=== PATIENT | female | born 1995 | race Two or more races ===

== ENCOUNTER 2025-02-14 11:12 | Inpatient (IN) | payer MEDICAID, OTHER ==
[~2025-02-14] VITALS: Ht 167.6 cm; Wt 145.0 kg
[2025-02-14 12:42] LABS: Urine Bacteria MANY /hpf (None Seen); Urine Blood Negative /uL (Negative); Urine Clarity Clear (Clear); Urine Color Light-Yellow (Yellow); Urine Protein, UAD Negative (Negative); Urine Specific Gravity 1.013 (1.001-1.035); Urine Squamous Epithelial Cell FEW /hpf (<5); Urine Urobilinogen Normal (Negative); Urine WBC 6 /HPF (0-5); Urine pH 6.5 (5.0-9.0)
[2025-02-14 13:11] LABS: Basophils # (auto) 0 10 ^3/uL (0-0.2); Basophils % (auto) 0.1 % (0.0-2.0); Eosinophils # (auto) 0.1 10 ^3/uL (0-0.8); Eosinophils % (auto) 0.3 % (0.0-7.0); Hematocrit 39.4 % (36.0-46.0); Hemoglobin 13.1 g/dL (12.2-16.2); Lymphocytes # (auto) 1.5 10 ^3/uL (0.4-5.4); Lymphocytes % (auto) 7.7 % (10.0-50.0); Mean Corpuscular Hemoglobin 31.3 pg (28.0-32.0); Mean Corpuscular Hgb Conc. 33.4 g/dL (32.0-36.0); Mean Corpuscular Volume 93.8 fL (80.0-100.0); Monocytes # (auto) 1.3 10 ^3/uL (0-1.3); Monocytes % (auto) 6.4 % (0.0-12.0); Neutrophils # (auto) 16.7 10 ^3/uL (1.6-8.6); Neutrophils % (auto) 85.5 % (37.0-80.0); Nucleated Red Blood Cells % 0.1 %; Platelet Count (auto) 258 10^3/uL (140-450); Red Cell Distribution Width 13.9 % (11.8-14.3); White Blood Cell 19.5 10^3/uL (4.4-10.8)
[2025-02-14 13:19] LABS: Chloride 105 mmol/L (98-107); Sodium 138 mmol/L (136-145)
[2025-02-14 13:20] LABS: Anion Gap 6 (5-15); Calcium 9.3 mg/dL (8.7-10.4); Carbon Dioxide 27 mmol/L (20-31)
[2025-02-14 13:25] LABS: BUN/Creatinine Ratio 11.1 (10.0-20.0); Glucose 103 mg/dL (74-106)
[2025-02-14 13:28] LABS: Blood Urea Nitrogen 6 mg/dL (9-23)
[2025-02-14] MEDS: IOHEXOL 300 MG/ML 100ML BOTTLE IJ ONE (14:20)
--- NOTE | 2025-02-14 14:34 | DVH ---
Exam: CT CT AB PEL WITH IV CON ONLY History: Pain to left labia. Abscess COMPARISON: None Technique: Multidetector spiral CT of the abdomen and pelvis was performed from lung bases to pubic symphysis. Intravenous contrast was administered during this examination. Portal venous imaging was obtained. Axial, coronal and sagittal multiplanar reformats were performed by the technologist on a separate workstation. Radiation Dose : Abdomen/Pelvis: CTDIvol 27 mGy, DLP 1755 mGy*cm. CONTRAST: Type of contrast: Omni 300 Contrast injected: 100 mL Findings: Lung Bases: No acute or significant lung base finding. Normal heart size. No pleural or pericardial effusion. Liver: The liver is normal in size. No focal lesions. Normal hepatic vascular enhancement. Gallbladder and biliary Tree: Unremarkable Spleen: Unremarkable Pancreas: The pancreas is normal in appearance without focal lesions or abnormal enhancement. Adrenal Glands: Unremarkable Kidneys: No hydronephrosis. Bladder: Unremarkable Bowel: The stomach is grossly normal in appearance. Small bowel and colon are normal in caliber and d istribution. Normal appendix is visualized in the right lower quadrant without findings of appendicit is. Ascites: Absent Lymphadenopathy: Bilateral inguinal lymphadenopathy left greater than right. Abdominal wall and Mesentery: Unremarkable. Vasculature: The visualized abdominal aorta is normal in size and caliber. Abdominal and pelvic vess els demonstrate normal enhancement. Pelvic Organs: Left labia is swollen with a possible early abscess formation measuring up to 17 x 55 mm. Musculoskeletal: No aggressive focal bony lesions, acute fractures or dislocation. IMPRESSION: 1. Fluid collection in the left labia with adjacent swelling and stranding. Abscess measures up to 1 7 x 55 mm. Bilateral inguinal lymphadenopathy left greater than right. This could be further evaluate d with ultrasound. Radiation optimization: All CT scans at this facility use at least one of these dose optimization mohit hniques: Automated exposure control mA and/or kV adjustment per patient size (includes targeted exams where dose is matched to clinical indication) or iterative reconstruction. HS:Y
[2025-02-14] MEDS ORDERED: VANCOMYCIN PER PHARMACY 0 MG IV SCH (14:45)
--- NOTE | 2025-02-14 14:50 | ED.PDOC ---
History of Present Illness(SKN HPI Comments 30-year-old female with no MHx presents for a possible abscess to the left labia. Onset started two days ago. Associated with constant pain. Denies fevers chills nausea vomiting diarrhea drainage from the affected side Not immunocompromised Chief Complaint: Abscess Time Seen by MD: 11:22 Primary Care Provider: UNKNOWN History of Present Illness: Nurses Notes, Medications, Allergies Allergies: Coded Allergies: NO KNOWN ALLERGIES (Unverified , 02/14/25) Home Meds Active Scripts Clindamycin Hcl (Clindamycin Hcl) 300 Mg Cap, 1 CAP PO TID, #30 CAP Prov:SADIE SANTILLAN MD 02/18/25 Metoprolol Tartrate (Lopressor) 25 Mg Tb, 12.5 MG PO BID, #30 TAB 5 Refills Prov:SADIE SANTILLAN MD 02/18/25 Hydrocodone-Acetaminophen (Hydrocodone Bitartrate/AC 5-325 mg) 1 Tab Tab, 1 TAB PO Q4HP PRN, #30 TAB Prov:SADIE SANTILLAN MD 02/18/25 Flecainide Acetate (TAMBOCOR TABLET) 50 Mg Tb, 50 MG PO Q12HR, #60 TAB 5 Refills Prov:SADIE SANTILLAN MD 02/18/25 Information Source: Patient Mode of Arrival: Ambulatory Past Medical History PAST MEDICAL HISTORY: Denies Surgical History: Denies all surgeries 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 Family History Family History: Reviewed,noncontributory to illness Social History Smoker: Non-Smoker Alcohol: Denies ETOH Use Drugs: Denies Drug Use All Other Systems: Reviewed and Negative (Per Hpi) Physical Exam General Appearance: No Apparent Distress, Normal HEENT: Normal ENT Inspection, Pharynx Normal, TMs Normal Neck: Full Range of Motion, Non-Tender, Normal, Normal Inspection Respiratory: Chest Non-Tender, Lungs Clear, No Accessory Muscle Use, No Respiratory Distress, Normal Breath Sounds Cardiovascular: No Edema, No JVD, No Murmur, No Gallop, Regular Rate/Rhythm Breast Exam: Deferred Gastrointestinal: No Organomegaly, Non Tender, No Pulsatile Mass, Normal Bowel Sounds, Soft Genitalia: Deferred Pelvic: Deferred Rectal: Deferred Extremities: No calf tenderness, Normal capillary refill, Normal inspection, Normal range of motion, Non-tender, No pedal edema Musculoskeletal : Apperance: Normal Neurologic: Alert, No Motor Deficits, Normal Affect, Normal Mood, No Sensory Deficits Cerebellar Function: Normal Reflexes: Normal Skin: Dry, Normal Color, Warm Lymphatic: No Adenopathy Was a procedure done? Was a procedure done?: No Images 1 - LEFT LABIA ENLARGED. ERYTHEMATOUS. FLUCTUANT TO PALPATION. OBVIOUS ENLARGEMENT AND SWELLING COMPARED TO THE UNAFFECTED SIDE. NO CREPITUS ON PALPATION. Differential Diagnosis (INTG) Differential Diagnosis: Cellulitis Differential Diagnosis: Abscess X-Ray, Labs, Meds, VS Vital Signs Date Time Temp Pulse Resp B/P (MAP) Pulse Ox O2 Delivery O2 Flow Rate FiO2 02/14/25 11:16 98.7 99 20 126/84 (98) 97 98.7 Lab Test 02/14/25 12:54 02/14/25 12:12 Range/Units White Blood Count 19.5 H 4.4-10.8 10^3/uL Red Blood Count 4.20 4.0-5.20 10^6/uL Hemoglobin 13.1 12.2-16.2 g/dL Hematocrit 39.4 36.0-46.0 % Mean Corpuscular Volume 93.8 80.0-100.0 fL Mean Corpuscular Hemoglobin 31.3 28.0-32.0 pg Mean Corpuscular Hemoglobin Concent 33.4 32.0-36.0 g/dL Red Cell Distribution Width 13.9 11.8-14.3 % Platelet Count 258 140-450 10^3/uL Mean Platelet Volume 8.7 6.9-10.8 fL Neutrophils (%) (Auto) 85.5 H 37.0-80.0 % Lymphocytes (%) (Auto) 7.7 L 10.0-50.0 % Monocytes (%) (Auto) 6.4 0.0-12.0 % Eosinophils (%) (Auto) 0.3 0.0-7.0 % Basophils (%) (Auto) 0.1 0.0-2.0 % Neutrophils # (Auto) 16.7 H 1.6-8.6 10 ^3/uL Lymphocytes # (Auto) 1.5 0.4-5.4 10 ^3/uL Monocytes # (Auto) 1.3 0-1.3 10 ^3/uL Eosinophils # (Auto) 0.1 0-0.8 10 ^3/uL Basophils # (Auto) 0 0-0.2 10 ^3/uL Nucleated Red Blood Cells 0.1 % Sodium Level 138 136-145 mmol/L Potassium Level 4.0 3.5-5.1 mmol/L Chloride Level 105 98-107 mmol/L Carbon Dioxide Level 27 20-31 mmol/L Anion Gap 6 5-15 Blood Urea Nitrogen 6 L 9-23 mg/dL Creatinine 0.54 L 0.550-1.02 mg/dL Glomerular Filtration Rate Calc 125 >90 mL/min BUN/Creatinine Ratio 11.1 10.0-20.0 Serum Glucose 103 74-106 mg/dL Calcium Level 9.3 8.7-10.4 mg/dL C-Reactive Protein High Sensitivity 5.91 H <1.0 mg/dL Urine Color Light-yellow Yellow Urine Clarity Clear Clear Urine pH 6.5 5.0-9.0 Urine Specific [place] 1.013 1.001-1.035 Urine Protein Negative Negative Urine Ketones Negative Negative Urine Blood Negative Negative /uL Urine Nitrite 2+ H Negative Urine Bilirubin Negative Negative Urine Urobilinogen Normal Negative mg/dL Urine Leukocyte Esterase Trace Negative /uL Urine RBC 1 0 - 4 /hpf Urine Microscopic WBC 6 H 0-5 /HPF Urine Squamous Epithelial Cells Few <5 /hpf Urine Bacteria Many H None Seen /hpf Urine Glucose Normal Normal mg/dL [place] [id number] Ph: [phone] DIAGNOSTIC IMAGING Diagnostic Imaging Report : [id number] Signed PATIENT: PAVAN ALEGRIA ACCT: [id number] UNIT: [id number] : 1995 LOC: ER ROOM / BED: / AGE / SEX: 30 / F ADM STATUS: REG ER SERVICE 1340 ORDERING PHYSICIAN: ANNA VELASCO NP PROCEDURE(s): ABPLIV - CT AB PEL WITH IV CON ONLY REASON: Pain to left labia. Abscess? ORDER NUMBER(s): [id number], ACCESSION NUMBER(s): [id number] Exam: CT CT AB PEL WITH IV CON ONLY History: Pain to left labia. Abscess COMPARISON: None Technique: Multidetector spiral CT of the abdomen and pelvis was performed from lung bases to pubic symphysis. Intravenous contrast was administered during this examination. Portal venous imaging was obtained. Axial, coronal and sagittal multiplanar reformats were performed by the technologist on a separate workstation. Radiation Dose : Abdomen/Pelvis: CTDIvol 27 mGy, DLP 1755 mGy*cm. CONTRAST: Type of contrast: Omni 300 Contrast injected: 100 mL Findings: Lung Bases: No acute or significant lung base finding. Normal heart size. No pleural or pericardial effusion. Liver: The liver is normal in size. No focal lesions. Normal hepatic vascular enhancement. Gallbladder and biliary Tree: Unremarkable Spleen: Unremarkable Pancreas: The pancreas is normal in appearance without focal lesions or abnormal enhancement. Adrenal Glands: Unremarkable Kidneys: No hydronephrosis. Bladder: Unremarkable Bowel: The stomach is grossly normal in appearance. Small bowel and colon are normal in caliber and distribution. Normal appendix is visualized in the right lower quadrant without findings of appendicitis. Ascites: Absent Lymphadenopathy: Bilateral inguinal lymphadenopathy left greater than right. Abdominal wall and Mesentery: Unremarkable. Vasculature: The visualized abdominal aorta is normal in size and caliber. Abdominal and pelvic vessels demonstrate normal enhancement. Pelvic Organs: Left labia is swollen with a possible early abscess formation measuring up to 17 x 55 mm. Musculoskeletal: No aggressive focal bony lesions, acute fractures or dislocation. IMPRESSION: 1. Fluid collection in the left labia with adjacent swelling and stranding. Abscess measures up to 17 x 55 mm. Bilateral inguinal lymphadenopathy left greater than right. This could be further evaluated with ultrasound. Radiation optimization: All CT scans at this facility use at least one of these dose optimization techniques: Automated exposure control mA and/or kV adjustment per patient size (includes targeted exams where dose is matched to clinical indication) or iterative reconstruction. X-Ray, Labs, Meds, VS Comment The patient presents with s/s consistent with a left labia abscess Patients work up was remarkable for: Fluid collection in the left labia with adjacent swelling and stranding. Abscess measures up to 17 x 55 mm. Bilateral inguinal lymphadenopathy left greater than right. This could be further evaluated with ultrasound. Labs ordered and WBC at 19.5, neutrophils 85.5 IV Hep-Lock ordered. Patient will receive vanco per pharmacy and Zosyn The patient's workup reveals that the patient needs IV abx and I&D. Patient verbalized understanding of the above and is awaiting further evaluation by the admitting service. Time of 1ST Reevaluation: 14:41 Reevaluation 1ST: Unchanged Patient Education/Counseling: Diagnosis, Treatment Family Education/Counseling: Diagnosis, Treatment Departure 1 Departure Time of Disposition: 14:49 Impression: Primary Impression: Labial abscess Disposition: 09 ADMITTED INPATIENT Condition: Serious e-Prescriptions Clindamycin Hcl (Clindamycin Hcl) 300 Mg Cap 1 CAP PO TID, #30 CAP Prov: SADIE SANTILLAN MD 02/18/25 Metoprolol Tartrate (Lopressor) 25 Mg Tb 12.5 MG PO BID, #30 TAB 5 Refills Prov: SADIE SANTILLAN MD 02/18/25 Hydrocodone-Acetaminophen (Hydrocodone Bitartrate/AC 5-325 mg) 1 Tab Tab 1 TAB PO Q4HP PRN, #30 TAB Prov: SADIE SANTILLAN MD 02/18/25 Flecainide Acetate (TAMBOCOR TABLET) 50 Mg Tb 50 MG PO Q12HR, #60 TAB 5 Refills Prov: SADIE SANTILLAN MD 02/18/25 Critical Care Note Critical Care Time?: No Stability Stability form required: No Heart Score Heart Score: Heart Score Response (Comments) Value History N/A 0 EKG N/A 0 Age N/A 0 Risk Factors N/A 0 Troponin N/A 0 Total 0 ANNA VELASCO NP Feb 14, 2025 14:50
[2025-02-14] MEDS: PIPERACILLIN-TAZOB 3.375GM 100 ML IV ONE (15:06)
[2025-02-14] MEDS: HYDROcodone-ACET 7.5/325MG TAB PO ONE (15:14)
--- NOTE | 2025-02-14 15:23 | DVHHP2 ---
Admitting Diagnosis: Abscess History of Present Illness 30-year-old female with no MHx presents for a possible abscess to the left labia. Onset started two days ago. Associated with constant pain. 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 Family History Family History: Reviewed,noncontributory to illness Social History Smoker: Non-Smoker Alcohol: Denies ETOH Use Drugs: Denies Drug Use Allergies: Coded Allergies: NO KNOWN ALLERGIES (Unverified , 02/14/25) Current Medications Current Medications Medications (Trade) Dose Ordered Sig/Noah Route PRN Reason Start Time Stop Time Status Last Admin Vancomycin HCl 0 ml @ 0 mls/hr UD IV 02/14/25 14:45 UNV Vancomycin HCl 200 ml @ 200 mls/hr Q1HR IV 02/14/25 16:00 02/14/25 17:59 Vital Signs Vital Signs Date Time Temp Pulse Resp B/P (MAP) Pulse Ox O2 Delivery O2 Flow Rate FiO2 02/14/25 11:16 98.7 99 20 126/84 (98) 97 98.7 Physical Exam 30 years old woman, morbidly obese, lying in bed. No apparent distress HEENT-atraumatic, normocephalic Heart-regular rate and rhythm Lungs decreased breath sounds bilaterally Abdomen soft tender nondistended Musculoskeletal-no edema cyanosis -left labia abscess Neuro-AO x3, no focal deficits Results Labs Test 02/14/25 12:54 02/14/25 12:12 Range/Units White Blood Count 19.5 H 4.4-10.8 10^3/uL Red Blood Count 4.20 4.0-5.20 10^6/uL Hemoglobin 13.1 12.2-16.2 g/dL Hematocrit 39.4 36.0-46.0 % Mean Corpuscular Volume 93.8 80.0-100.0 fL Mean Corpuscular Hemoglobin 31.3 28.0-32.0 pg Mean Corpuscular Hemoglobin Concent 33.4 32.0-36.0 g/dL Red Cell Distribution Width 13.9 11.8-14.3 % Platelet Count 258 140-450 10^3/uL Mean Platelet Volume 8.7 6.9-10.8 fL Neutrophils (%) (Auto) 85.5 H 37.0-80.0 % Lymphocytes (%) (Auto) 7.7 L 10.0-50.0 % Monocytes (%) (Auto) 6.4 0.0-12.0 % Eosinophils (%) (Auto) 0.3 0.0-7.0 % Basophils (%) (Auto) 0.1 0.0-2.0 % Neutrophils # (Auto) 16.7 H 1.6-8.6 10 ^3/uL Lymphocytes # (Auto) 1.5 0.4-5.4 10 ^3/uL Monocytes # (Auto) 1.3 0-1.3 10 ^3/uL Eosinophils # (Auto) 0.1 0-0.8 10 ^3/uL Basophils # (Auto) 0 0-0.2 10 ^3/uL Nucleated Red Blood Cells 0.1 % Sodium Level 138 136-145 mmol/L Potassium Level 4.0 3.5-5.1 mmol/L Chloride Level 105 98-107 mmol/L Carbon Dioxide Level 27 20-31 mmol/L Anion Gap 6 5-15 Blood Urea Nitrogen 6 L 9-23 mg/dL Creatinine 0.54 L 0.550-1.02 mg/dL Glomerular Filtration Rate Calc 125 >90 mL/min BUN/Creatinine Ratio 11.1 10.0-20.0 Serum Glucose 103 74-106 mg/dL Calcium Level 9.3 8.7-10.4 mg/dL Urine Color Light-yellow Yellow Urine Clarity Clear Clear Urine pH 6.5 5.0-9.0 Urine Specific [place] 1.013 1.001-1.035 Urine Protein Negative Negative Urine Ketones Negative Negative Urine Blood Negative Negative /uL Urine Nitrite 2+ H Negative Urine Bilirubin Negative Negative Urine Urobilinogen Normal Negative mg/dL Urine Leukocyte Esterase Trace Negative /uL Urine RBC 1 0 - 4 /hpf Urine Microscopic WBC 6 H 0-5 /HPF Urine Squamous Epithelial Cells Few <5 /hpf Urine Bacteria Many H None Seen /hpf Urine Glucose Normal Normal mg/dL Primary Diagnosis Labial abscess sepsis Plan Tachycardic, elevated WBC patient is septic CT abdomen and pelvis confirmed liver abscess Vanc and Zosyn for broad-spectrum antibiotics Surgery consult for sitting and drainage Check lactic acid Pain control Antiemetic IV fluids Full code SCD for DVT prophylaxis No GI prophylaxis needed NPO except med Plan discussed with: Patient Date of Service: Feb 14, 2025 Billing Provider: ALISON GENAO MD Common Visit Codes: [id number] INP/OBS CARE (HIGH) ALISON GENAO MD Feb 14, 2025 15:23
[2025-02-14] MEDS ORDERED: DOCUSATE SOD 100 MG CAP PO PRN (15:30)
[2025-02-14] MEDS ORDERED: HYDROmorphone HCL 2 MG/ML VL/or syr IV PRN (15:30)
[2025-02-14] MEDS ORDERED: ONDANSETRON HCL 4 MG/2 ML VIAL IV PRN (15:30)
[2025-02-14] MEDS ORDERED: ACETAMINOPHEN 325 MG TAB PO PRN (15:30)
[2025-02-14 16:19] VITALS: RESP 18; TEMP 98.5; O2SAT 98
[2025-02-14 17:00] VITALS: BP 101/54; PULSE 92; RESP 18; TEMP 98.5; O2SAT 100
[2025-02-14 17:02] LABS: INR 1.04 (0.9-1.15)
[2025-02-14] MEDS: HYDROcodone-ACET 5/325MG TAB PO PRN (19:56)
[2025-02-14] MEDS: PIPERACILLIN-TAZOB 3.375GM 100 ML IV SCH (21:08)
[2025-02-14] MEDS: SODIUM CHLOR 0.9% PF (SALINE LOCK) 10ML VIAL/SYR IV SCH (21:09)
[2025-02-14 22:15] VITALS: BP 132/76; PULSE 100; RESP 18; TEMP 99.6; O2SAT 97
[2025-02-15] VITALS (8 sets, daily range): BP systolic 102–126; BP diastolic 53–72; PULSE 88–101; RESP 17–20; TEMP 98.3–99.3; O2SAT 94–97
[2025-02-15] MEDS: VANCOMYCIN 1.75GM/350ML 350 ML IV SCH (01:45)
[2025-02-15 06:18] LABS: Basophils # (auto) 0 10 ^3/uL (0-0.2); Basophils % (auto) 0.1 % (0.0-2.0); Eosinophils # (auto) 0.1 10 ^3/uL (0-0.8); Eosinophils % (auto) 0.8 % (0.0-7.0); Hematocrit 37.6 % (36.0-46.0); Hemoglobin 12.6 g/dL (12.2-16.2); Lymphocytes # (auto) 1.3 10 ^3/uL (0.4-5.4); Mean Corpuscular Hemoglobin 31.4 pg (28.0-32.0); Mean Corpuscular Hgb Conc. 33.6 g/dL (32.0-36.0); Mean Corpuscular Volume 93.4 fL (80.0-100.0); Monocytes % (auto) 6.7 % (0.0-12.0); Neutrophils # (auto) 12.4 10 ^3/uL (1.6-8.6); Neutrophils % (auto) 83.4 % (37.0-80.0); Nucleated Red Blood Cells % 0.1 %; Platelet Count (auto) 253 10^3/uL (140-450); Red Blood Cells 4.02 10^6/uL (4.0-5.20); White Blood Cell 14.9 10^3/uL (4.4-10.8)
[2025-02-15 06:32] LABS: Alanine Aminotransferase 12 U/L (7-40); Albumin 4.1 g/dL (3.2-4.8); Alkaline Phosphatase 74 U/L (46-116); Anion Gap 9 (5-15); Carbon Dioxide 24 mmol/L (20-31); Chloride 105 mmol/L (98-107); Glucose 99 mg/dL (74-106); Potassium 3.6 mmol/L (3.5-5.1); Sodium 138 mmol/L (136-145); Total Protein 7.2 g/dL (5.7-8.2)
[2025-02-15 06:35] LABS: Aspartate Aminotransferase 8 U/L (13-40); BUN/Creatinine Ratio 9.4 (10.0-20.0); Bilirubin, Total 1.3 mg/dL (0.2-1.0); Blood Urea Nitrogen < 5 mg/dL (9-23)
--- NOTE | 2025-02-15 21:28 | DVHINCON2 ---
Date of service: Feb 15, 2025 Reason for Consultation left labial abscess History of Present Illness 30yo Female has had the left labial abscess since 02/12/25 and reports it rupturing while in the hospital on 02/14/25. She reports having smaller pimples/boils like this monthly after her menses. She also gets these pim ples/boils on the back of her neck and between her breasts. Denies official diagnosis of hidradenitis suppurativa, but suspects it is that. She reports shaving pubic hair regularly, but wants to switch to waxing instead. Denies irritation or boils after sexual intercourse, but will refrain if she has an active pimple/boil since its painful. 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 Allergies: Coded Allergies: NO KNOWN ALLERGIES (Unverified , 02/14/25) Current Medications Current Medications Medications (Trade) Dose Ordered Sig/Noah Route PRN Reason Start Time Stop Time Status Last Admin Sodium Chloride (Saline Lock Ns) 10 ml Q8HR IV 02/14/25 22:00 02/15/25 14:00 Piperacillin Sod/ Tazobactam Sod 100 ml @ 25 mls/hr Q6H IV 02/14/25 21:00 02/15/25 14:20 Review of Systems All 10 points of ROS negative Vital Signs Vital Signs Date Time Temp Pulse Resp B/P (MAP) Pulse Ox O2 Delivery O2 Flow Rate FiO2 02/15/25 17:00 98.3 95 18 111/70 (84) 97 98.3 02/15/25 08:00 Room Air* 0 21 Physical Exam : 3+ left labial edema noted and blood drainage expressed from abscess opening. right labial WNL. Labs/Diagnostic Data Labs Test 02/15/25 15:45 02/15/25 05:13 02/14/25 17:10 02/14/25 16:34 Range/Units Vancomycin Level Trough 12.8 H 5-10 ug/mL White Blood Count 14.9 H 4.4-10.8 10^3/uL Red Blood Count 4.02 4.0-5.20 10^6/uL Hemoglobin 12.6 12.2-16.2 g/dL Hematocrit 37.6 36.0-46.0 % Mean Corpuscular Volume 93.4 80.0-100.0 fL Mean Corpuscular Hemoglobin 31.4 28.0-32.0 pg Mean Corpuscular Hemoglobin Concent 33.6 32.0-36.0 g/dL Red Cell Distribution Width 14.0 11.8-14.3 % Platelet Count 253 140-450 10^3/uL Mean Platelet Volume 9.2 6.9-10.8 fL Neutrophils (%) (Auto) 83.4 H 37.0-80.0 % Lymphocytes (%) (Auto) 9.0 L 10.0-50.0 % Monocytes (%) (Auto) 6.7 0.0-12.0 % Eosinophils (%) (Auto) 0.8 0.0-7.0 % Basophils (%) (Auto) 0.1 0.0-2.0 % Neutrophils # (Auto) 12.4 H 1.6-8.6 10 ^3/uL Lymphocytes # (Auto) 1.3 0.4-5.4 10 ^3/uL Monocytes # (Auto) 1.0 0-1.3 10 ^3/uL Eosinophils # (Auto) 0.1 0-0.8 10 ^3/uL Basophils # (Auto) 0 0-0.2 10 ^3/uL Nucleated Red Blood Cells 0.1 % Sodium Level 138 136-145 mmol/L Potassium Level 3.6 3.5-5.1 mmol/L Chloride Level 105 98-107 mmol/L Carbon Dioxide Level 24 20-31 mmol/L Anion Gap 9 5-15 Blood Urea Nitrogen < 5 L 9-23 mg/dL Creatinine 0.53 L 0.550-1.02 mg/dL Glomerular Filtration Rate Calc 126 >90 mL/min BUN/Creatinine Ratio 9.4 L 10.0-20.0 Serum Glucose 99 74-106 mg/dL Calcium Level 9.0 8.7-10.4 mg/dL Total Bilirubin 1.3 H 0.2-1.0 mg/dL Aspartate Amino Transferase (AST) 8 L 13-40 U/L Alanine Aminotransferase (ALT) 12 7-40 U/L Alkaline Phosphatase 74 46-116 U/L Total Protein 7.2 5.7-8.2 g/dL Albumin 4.1 3.2-4.8 g/dL Lactic Acid Level 0.8 0.4-2.0 mmol/L Prothrombin Time 11.0 9.3-11.8 sec Prothrombin Time INR 1.04 0.9-1.15 Test 02/14/25 12:54 02/14/25 12:12 Range/Units C-Reactive Protein High Sensitivity 5.91 H <1.0 mg/dL Urine Color Light-yellow Yellow Urine Clarity Clear Clear Urine pH 6.5 5.0-9.0 Urine Specific [place] 1.013 1.001-1.035 Urine Protein Negative Negative Urine Ketones Negative Negative Urine Blood Negative Negative /uL Urine Nitrite 2+ H Negative Urine Bilirubin Negative Negative Urine Urobilinogen Normal Negative mg/dL Urine Leukocyte Esterase Trace Negative /uL Urine RBC 1 0 - 4 /hpf Urine Microscopic WBC 6 H 0-5 /HPF Urine Squamous Epithelial Cells Few <5 /hpf Urine Bacteria Many H None Seen /hpf Urine Glucose Normal Normal mg/dL [place] [id number] Ph: [phone] DIAGNOSTIC IMAGING Diagnostic Imaging Report : [id number] Signed PATIENT: PAVAN ALEGRIA ACCT: [id number] UNIT: [id number] : 1995 LOC: ER ROOM / BED: / AGE / SEX: 30 / F ADM STATUS: REG ER SERVICE 1340 ORDERING PHYSICIAN: ANNA VELASCO NP PROCEDURE(s): ABPLIV - CT AB PEL WITH IV CON ONLY REASON: Pain to left labia. Abscess? ORDER NUMBER(s): [id number], ACCESSION NUMBER(s): [id number] Exam: CT CT AB PEL WITH IV CON ONLY History: Pain to left labia. Abscess COMPARISON: None Technique: Multidetector spiral CT of the abdomen and pelvis was performed from lung bases to pubic symphysis. Intravenous contrast was administered during this examination. Portal venous imaging was obtained. Axial, coronal and sagittal multiplanar reformats were performed by the technologist on a separate workstation. Radiation Dose : Abdomen/Pelvis: CTDIvol 27 mGy, DLP 1755 mGy*cm. CONTRAST: Type of contrast: Omni 300 Contrast injected: 100 mL Findings: Lung Bases: No acute or significant lung base finding. Normal heart size. No pleural or pericardial effusion. Liver: The liver is normal in size. No focal lesions. Normal hepatic vascular enhancement. Gallbladder and biliary Tree: Unremarkable Spleen: Unremarkable Pancreas: The pancreas is normal in appearance without focal lesions or abnormal enhancement. Adrenal Glands: Unremarkable Kidneys: No hydronephrosis. Bladder: Unremarkable Bowel: The stomach is grossly normal in appearance. Small bowel and colon are normal in caliber and distribution. Normal appendix is visualized in the right lower quadrant without findings of appendicitis. Ascites: Absent Lymphadenopathy: Bilateral inguinal lymphadenopathy left greater than right. Abdominal wall and Mesentery: Unremarkable. Vasculature: The visualized abdominal aorta is normal in size and caliber. Abdominal and pelvic vessels demonstrate normal enhancement. Pelvic Organs: Left labia is swollen with a possible early abscess formation measuring up to 17 x 55 mm. Musculoskeletal: No aggressive focal bony lesions, acute fractures or dislocation. IMPRESSION: 1. Fluid collection in the left labia with adjacent swelling and stranding. Abscess measures up to 17 x 55 mm. Bilateral inguinal lymphadenopathy left greater than right. This could be further evaluated with ultrasound. Radiation optimization: All CT scans at this facility use at least one of these dose optimization techniques: Automated exposure control mA and/or kV adjustment per patient size (includes targeted exams where dose is matched to clinical indication) or iterative reconstruction. HS:Y ATED BY: CEZAR VELASCO MD DICTATED DATE/TIME: 02/14/251431 SIGNED BY: CEZAR VELASCO MD SIGNED DATE/TIME: 02/14/25 143 CC: Primary Diagnosis left labial abscess 2' Diagnosis/Comorbidities morbid obesity Plan Dietary consult ordered sitz bath BID ordered ice pack and pressure to perineum ordered wound care with NS daily ordered Wound culture done by wound care provider during consult, pending result Continue IV vanco/zosyn per Medicine orders Dr. Yanez consulted, agrees with POC. Pt cleared by CHRISTIAN COUNSELOR service. Medicine to continue pts care. 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 Plan discussed with: Patient Visit Coding OBGYN Date of Service: Feb 15, 2025 Billing Provider: GIANCARLO REES CNM CHRISTIAN COUNSELOR Common Visit Codes: CONSULTATION ONLY CHRISTIAN COUNSELOR Consultation Codes: [id number] CONSULT <55MIN GIANCARLO REES CNM Feb 15, 2025 21:28
--- NOTE | 2025-02-15 22:18 | DVHPN2 ---
Subjective The patient is seen and examined at bedside. No complaint today. The abscess in her labia is popped by itself per patient. Reviewed: Care Plan, H&P, Labs, Medications, Previous Orders, Radiology Changes from previous H/P or p: No Changes Objective Vitals Vital Signs Date Time Temp Pulse Resp B/P (MAP) Pulse Ox O2 Delivery O2 Flow Rate FiO2 02/15/25 21:00 99.1 101 20 112/69 (83) 95 99.1 02/15/25 08:00 Room Air* 0 21 Intake/Output Intake and Output 02/15/25 07:00 Intake Total 600 ml Balance 600 ml Intake Oral 50 ml IV Total 550 ml General Appearance: Alert, Oriented X3, Cooperative, No acute distress HEENT: Atraumatic, PERRLA, EOMI, Mucous membr. moist/pink Neck: Supple Lungs: Clear to auscultation, Normal air movement Cardiovascular: Regular rate, Normal S1, Normal S2, No murmurs, Gallops, Rubs Abdomen: Normal bowel sounds, Soft, No tenderness Neuro: Cranial nerves 3-12 NL Psych/Mental Status: Mental status NL Medications Current Medications Medications Dose Ordered Sig/Noah Route Start Time Stop Time Status Last Admin Dose Admin Vancomycin HCl 0 ml @ 0 mls/hr UD IV 02/14/25 14:45 Sodium Chloride 10 ml Q8HR IV 02/14/25 22:00 02/15/25 14:00 10 ML Docusate Sodium 100 mg BIDPRN PRN PO 02/14/25 15:30 Acetaminophen 650 mg Q6HP PRN PO 02/14/25 15:30 Acetaminophen/ Hydrocodone Bitart 1 tab Q4HP PRN PO 02/14/25 15:30 02/14/25 19:56 1 TAB Hydromorphone HCl 0.5 mg Q4HP PRN IV 02/14/25 15:30 Ondansetron HCl 4 mg Q4HP PRN IV 02/14/25 15:30 Piperacillin Sod/ Tazobactam Sod 100 ml @ 25 mls/hr Q6H IV 02/14/25 21:00 02/15/25 21:59 25 MLS/HR Vancomycin HCl 350 ml @ 200 mls/hr Q8H IV 02/14/25 17:45 02/15/25 18:37 200 MLS/HR Laboratory Results Laboratory Tests 02/15/25 05:13 Chemistry Test 02/15/25 05:13 Albumin 4.1 g/dL (3.2-4.8) Calcium Level 9.0 mg/dL (8.7-10.4) Total Protein 7.2 g/dL (5.7-8.2) LFT Test 02/15/25 05:13 Alanine Aminotransferase (ALT) 12 U/L (7-40) Alkaline Phosphatase 74 U/L (46-116) Aspartate Amino Transferase (AST) 8 U/L (13-40) L Total Bilirubin 1.3 mg/dL (0.2-1.0) H Urinalysis Test 02/14/25 12:12 Urine Color Light-yellow (Yellow) Urine Clarity Clear (Clear) Urine pH 6.5 (5.0-9.0) Urine Specific [place] 1.013 (1.001-1.035) Urine Protein Negative (Negative) Urine Ketones Negative (Negative) Urine Blood Negative /uL (Negative) Urine Nitrite 2+ (Negative) H Urine Bilirubin Negative (Negative) Urine Urobilinogen Normal mg/dL (Negative) Urine Leukocyte Esterase Trace /uL (Negative) Urine RBC 1 /hpf (0 - 4) Urine Microscopic WBC 6 /HPF (0-5) H Urine Squamous Epithelial Cells Few /hpf (<5) Urine Bacteria Many /hpf (None Seen) H Urine Glucose Normal mg/dL (Normal) Labs and/or images reviewed: Labs reviewed by me Assessment/Plan Assessment/Plan Labial abscess Sepsis Tachycardia Leukocytosis Plan Continuing current management. Continuing IV antibiotic. We will monitor tachycardia. Consult OBGYN regarding to the labia abscess. Continuing with pain medication. Restart diet regular diet. Plan discussed with: Patient My Orders Orders - SADIE SANTILLAN MD Procedure Category Date Status Time Regular Diet DIET 02/15/25 Transmitted Lunch * Billiard Table Assembler Consultation CONS 02/15/25 Transmitted 12:21 Wound Culture W/ Gs TAHMINA 02/15/25 In Process 12:00 Cover Wound With Dry BEAR 02/15/25 In Process Dressing 11:55 Date of Service: Feb 15, 2025 Billing Provider: SADIE SANTILLAN MD Common Visit Codes: [id number] INP/OBS CARE(HIGH) SADIE SANTILLAN MD Feb 15, 2025 22:18
[2025-02-16] VITALS (8 sets, daily range): BP systolic 97–115; BP diastolic 62–73; PULSE 81–155; RESP 17–19; TEMP 98.2–99.2; O2SAT 95–99
[2025-02-16 06:06] LABS: Basophils # (auto) 0 10 ^3/uL (0-0.2); Basophils % (auto) 0.4 % (0.0-2.0); Eosinophils # (auto) 0.2 10 ^3/uL (0-0.8); Eosinophils % (auto) 1.8 % (0.0-7.0); Hematocrit 41.1 % (36.0-46.0); Hemoglobin 13.8 g/dL (12.2-16.2); Lymphocytes # (auto) 2.2 10 ^3/uL (0.4-5.4); Lymphocytes % (auto) 17.3 % (10.0-50.0); Mean Corpuscular Hemoglobin 31.4 pg (28.0-32.0); Mean Corpuscular Hgb Conc. 33.6 g/dL (32.0-36.0); Mean Corpuscular Volume 93.4 fL (80.0-100.0); Monocytes % (auto) 7.5 % (0.0-12.0); Neutrophils # (auto) 9.4 10 ^3/uL (1.6-8.6); Platelet Count (auto) 306 10^3/uL (140-450); Red Cell Distribution Width 13.9 % (11.8-14.3); White Blood Cell 12.9 10^3/uL (4.4-10.8)
[2025-02-16] MEDS: SODIUM CHLORIDE 0.9% 1,000 ML IV ONE (06:15)
[2025-02-16] MEDS: ADENOSINE 6 MG/2 ML INJ IV ONE (06:15)
--- NOTE | 2025-02-16 06:26 | ECG ---
[facility] Test Date: 2025-02-16 Test Time: 05:24:26 Pat Name: PAVAN ALEGRIA Department: Respiratoy Room: [address] [place] [address] 1 Gender: F Rn Digestive: JASPAL : 1995 Requested By: MARITO ANTHONY Order Number: [id number] Reading MD: Emanuel Orellana Measurements Intervals Mcloud Rate: 162 P: 0 AR: 98 QRS: 20 QRSD: 84 T: 74 QT: 289 QTc: 475 Interpretive Statements Sinus tachycardia RSR' in V1 or V2, probably normal variant Borderline ST depression, lateral leads Electronically Signed On 02-16-2025 15:53:06 PDT by Emanuel Orellana Please click the below link to view image of tracing.
[2025-02-16 06:27] LABS: Alanine Aminotransferase 11 U/L (7-40); Albumin 4.2 g/dL (3.2-4.8); Alkaline Phosphatase 74 U/L (46-116); Anion Gap 7 (5-15); BUN/Creatinine Ratio 10.5 (10.0-20.0); Calcium 9.1 mg/dL (8.7-10.4); Carbon Dioxide 21 mmol/L (20-31); Sodium 137 mmol/L (136-145); Total Protein 7.6 g/dL (5.7-8.2)
[2025-02-16 06:28] LABS: Bilirubin, Total 0.4 mg/dL (0.2-1.0)
[2025-02-16 06:29] LABS: Aspartate Aminotransferase 9 U/L (13-40); Blood Urea Nitrogen 6 mg/dL (9-23); Chloride 109 mmol/L (98-107); Glucose 111 mg/dL (74-106); Potassium 3.5 mmol/L (3.5-5.1)
[2025-02-16] MEDS ORDERED: NITROGLYCERIN 0.4 MG SL TAB SL PRN (06:45)
[2025-02-16] MEDS ORDERED: MORPHINE SULFATE INJ 2 MG/ml SYRG IV PRN (06:45)
--- NOTE | 2025-02-16 11:48 | DVHPN2 ---
Subjective The patient is seen and examined at bedside. No complaint today. The patient has an episode of SVT was given adenosine. Denied chest pain. Denied heart palpitation. Reviewed: Care Plan, H&P, Labs, Medications, Previous Orders, Radiology Changes from previous H/P or p: No Changes Objective Vitals Vital Signs Date Time Temp Pulse Resp B/P (MAP) Pulse Ox O2 Delivery O2 Flow Rate FiO2 02/16/25 09:00 98.2 92 17 97/62 (74) 96 98.2 02/15/25 20:00 Room Air* 0 21 Intake/Output Intake and Output 02/16/25 07:00 Intake Total 1380 ml Balance 1380 ml Intake Oral 930 ml IV Total 450 ml # Voids 1 # Bowel Movements 1 General Appearance: Alert, Oriented X3, Cooperative, No acute distress HEENT: Atraumatic, PERRLA, EOMI, Mucous membr. moist/pink Neck: Supple Lungs: Clear to auscultation, Normal air movement Cardiovascular: Regular rate, Normal S1, Normal S2, No murmurs, Gallops, Rubs Abdomen: Normal bowel sounds, Soft, No tenderness Neuro: Cranial nerves 3-12 NL Psych/Mental Status: Mental status NL Medications Current Medications Medications Dose Ordered Sig/Noah Route Start Time Stop Time Status Last Admin Dose Admin Vancomycin HCl 0 ml @ 0 mls/hr UD IV 02/14/25 14:45 Sodium Chloride 10 ml Q8HR IV 02/14/25 22:00 02/16/25 06:15 10 ML Docusate Sodium 100 mg BIDPRN PRN PO 02/14/25 15:30 Acetaminophen 650 mg Q6HP PRN PO 02/14/25 15:30 Acetaminophen/ Hydrocodone Bitart 1 tab Q4HP PRN PO 02/14/25 15:30 02/14/25 19:56 1 TAB Hydromorphone HCl 0.5 mg Q4HP PRN IV 02/14/25 15:30 Ondansetron HCl 4 mg Q4HP PRN IV 02/14/25 15:30 Piperacillin Sod/ Tazobactam Sod 100 ml @ 25 mls/hr Q6H IV 02/14/25 21:00 02/16/25 04:20 25 MLS/HR Vancomycin HCl 350 ml @ 200 mls/hr Q8H IV 02/14/25 17:45 02/16/25 08:59 200 MLS/HR Nitroglycerin 0.4 mg Q5MINP PRN SL 02/16/25 06:45 Morphine Sulfate 2 mg Q30M PRN IV 02/16/25 06:45 Sodium Chloride 10 ml Q8HR IV 02/16/25 14:00 Laboratory Results Laboratory Tests 02/16/25 05:12 Chemistry Test 02/16/25 05:12 Albumin 4.2 g/dL (3.2-4.8) Calcium Level 9.1 mg/dL (8.7-10.4) Total Protein 7.6 g/dL (5.7-8.2) LFT Test 02/16/25 05:12 Alanine Aminotransferase (ALT) 11 U/L (7-40) Alkaline Phosphatase 74 U/L (46-116) Aspartate Amino Transferase (AST) 9 U/L (13-40) L Total Bilirubin 0.4 mg/dL (0.2-1.0) Urinalysis Test 02/14/25 12:12 Urine Color Light-yellow (Yellow) Urine Clarity Clear (Clear) Urine pH 6.5 (5.0-9.0) Urine Specific [place] 1.013 (1.001-1.035) Urine Protein Negative (Negative) Urine Ketones Negative (Negative) Urine Blood Negative /uL (Negative) Urine Nitrite 2+ (Negative) H Urine Bilirubin Negative (Negative) Urine Urobilinogen Normal mg/dL (Negative) Urine Leukocyte Esterase Trace /uL (Negative) Urine RBC 1 /hpf (0 - 4) Urine Microscopic WBC 6 /HPF (0-5) H Urine Squamous Epithelial Cells Few /hpf (<5) Urine Bacteria Many /hpf (None Seen) H Urine Glucose Normal mg/dL (Normal) Microbiology Microbiology Date/Time Source Procedure Growth Status 02/15/25 12:05 Vulva Gram Stain - Final Resulted 02/15/25 12:05 Vulva Wound Culture - Preliminary Resulted Labs and/or images reviewed: Labs reviewed by me Assessment/Plan Assessment/Plan Labial abscess Sepsis Tachycardia, SVT this morning Leukocytosis Plan Continuing current management. Continuing IV antibiotic. We will monitor tachycardia. Appreciate OBGYN input regarding to the labia abscess. No I and D per OBGYN , continuing with antibiotic. Continuing with pain medication. We will order 2D echo. Cardiology consult for SVT. This medical document was created using an electronic medical record system with [employer] direct computerized dictation system. Although this document has been carefully reviewed, there may still be some phonetic and typographical errors. These areas are purely typographical due to imperfections of the software programs, and do not reflect any compromise in the patient's medical care. Plan discussed with: Patient My Orders Orders - SADIE SANTILLAN MD Procedure Category Date Status Time Regular Diet DIET 02/15/25 Transmitted Lunch * Cushion Filler Consultation CONS 02/15/25 Transmitted 12:21 Wound Culture W/ Gs TAHMINA 02/15/25 In Process 12:00 Cover Wound With Dry BEAR 02/15/25 In Process Dressing 11:55 Date of Service: Feb 16, 2025 Billing Provider: SADIE SANTILLAN MD Common Visit Codes: [id number] INP/OBS CARE(HIGH) SADIE SANTILLAN MD Feb 16, 2025 11:48
[2025-02-16] MEDS: SODIUM CHLOR 0.9% PF (SALINE LOCK) 10ML VIAL/SYR IV SCH (14:00)
--- NOTE | 2025-02-16 15:48 | DVHINCON2 ---
Date Seen: Feb 16, 2025 Referring Physician MD Johanne Reason for Consultation SVT History of Present Illness This is a 30-year-old female patient who presents to the emergency room with chief complaint of left labial abscess. Cardiology has been consulted at this time for new onset SVT. At approximately 5:00 a.m. this morning, the patient was woken by the FARM BUTCHER to obtain vital signs. The patient was noted to have an elevated pulse. The patient states that she did feel dizzy and short of breath at this time. A twelve lead electrocardiogram was ordered and revealed supraventricular tachycardia with rate 160s. According to documentation, the patient was given adenosine 6 mg IV one time and converted back into a normal sinus rhythm. At the time of assessment, monitor worker reviewed, no further episodes of SVT. Significant past medical history includes sleep apnea with CPAP use, multiple skin abscesses, and morbid obesity. Past Medical History Past medical history reviewed. No other significant than mentioned above. Past Surgical History I&D to abscess on lower back I&D to abscess on right hip Family History: Patient reports no known family medical history. Family History Family history reviewed. Social History Patient admits to social drinking, approximately two weekends out of the month Denies illicit drug use Denies tobacco use Allergies: Coded Allergies: NO KNOWN ALLERGIES (Unverified , 02/14/25) Home Meds Denies taking any prescribed medications Current Medications Current Medications Medications (Trade) Dose Ordered Sig/Noah Route PRN Reason Start Time Stop Time Status Last Admin Nitroglycerin (Ntrostat Sublingual) 0.4 mg Q5MINP PRN SL FOR CHEST PAIN 02/16/25 06:45 Morphine Sulfate 2 mg Q30M PRN IV FOR CHEST PAIN 02/16/25 06:45 Sodium Chloride (Saline Lock Ns) 10 ml Q8HR IV 02/16/25 14:00 Review of Systems Constitutional: No symptom reported Ears, Nose, & Throat: No symptom reported Eyes: No symptom reported Neurological: No symptoms reported Pulmonary/Respiratory: No symptoms reported Cardiovascular: No symptom reported Gastrointestinal: No symptom reported Genitourinary: Left labial abscess Musculoskeletal: No symptom reported Skin: No symptom reported Psychiatric: No symptom reported Endocrine: No symptom reported Hematologic/Lymphatic: No symptom reported Vital Signs Vital Signs Date Time Temp Pulse Resp B/P (MAP) Pulse Ox O2 Delivery O2 Flow Rate FiO2 02/16/25 13:00 98.6 92 18 104/62 (76) 95 98.6 02/16/25 08:00 Room Air* 0 21 Physical Exam General Appearance: Cooperative. Morbidly obese Pulmonary/Respiratory: Clear, bilateral breaths sounds. Cardiovascular/Chest: Regular rate and rhythm. . Peripheral Pulses: 2+ Radial (R). 2+ Radial (L). 2+ Pedal (R). 2+ Pedal (L) Abdominal Exam: Normal bowel sounds. Ankle Exam: Negative ankle edema Lower extremities: Negative lower extremity edema Neuro/Mental Status: A/OX4, coherent. Thoughts/Psych: Normal thought pattern. Appropriate mood and affect. Good judgment and insight. Appearance: No acute distress. Skin Exam: Normal inspection. Normal color. Warm and dry. Labs/Diagnostic Data Labs Test 02/16/25 05:12 02/15/25 15:45 02/14/25 17:10 02/14/25 16:34 Range/Units White Blood Count 12.9 H 4.4-10.8 10^3/uL Red Blood Count 4.40 4.0-5.20 10^6/uL Hemoglobin 13.8 12.2-16.2 g/dL Hematocrit 41.1 36.0-46.0 % Mean Corpuscular Volume 93.4 80.0-100.0 fL Mean Corpuscular Hemoglobin 31.4 28.0-32.0 pg Mean Corpuscular Hemoglobin Concent 33.6 32.0-36.0 g/dL Red Cell Distribution Width 13.9 11.8-14.3 % Platelet Count 306 140-450 10^3/uL Mean Platelet Volume 9.0 6.9-10.8 fL Neutrophils (%) (Auto) 73.0 37.0-80.0 % Lymphocytes (%) (Auto) 17.3 10.0-50.0 % Monocytes (%) (Auto) 7.5 0.0-12.0 % Eosinophils (%) (Auto) 1.8 0.0-7.0 % Basophils (%) (Auto) 0.4 0.0-2.0 % Neutrophils # (Auto) 9.4 H 1.6-8.6 10 ^3/uL Lymphocytes # (Auto) 2.2 0.4-5.4 10 ^3/uL Monocytes # (Auto) 1.0 0-1.3 10 ^3/uL Eosinophils # (Auto) 0.2 0-0.8 10 ^3/uL Basophils # (Auto) 0 0-0.2 10 ^3/uL Nucleated Red Blood Cells 0.0 % Sodium Level 137 136-145 mmol/L Potassium Level 3.5 3.5-5.1 mmol/L Chloride Level 109 H 98-107 mmol/L Carbon Dioxide Level 21 20-31 mmol/L Anion Gap 7 5-15 Blood Urea Nitrogen 6 L 9-23 mg/dL Creatinine 0.57 0.550-1.02 mg/dL Glomerular Filtration Rate Calc 124 >90 mL/min BUN/Creatinine Ratio 10.5 10.0-20.0 Serum Glucose 111 H 74-106 mg/dL Calcium Level 9.1 8.7-10.4 mg/dL Total Bilirubin 0.4 0.2-1.0 mg/dL Aspartate Amino Transferase (AST) 9 L 13-40 U/L Alanine Aminotransferase (ALT) 11 7-40 U/L Alkaline Phosphatase 74 46-116 U/L Total Protein 7.6 5.7-8.2 g/dL Albumin 4.2 3.2-4.8 g/dL Vancomycin Level Trough 12.8 H 5-10 ug/mL Lactic Acid Level 0.8 0.4-2.0 mmol/L Prothrombin Time 11.0 9.3-11.8 sec Prothrombin Time INR 1.04 0.9-1.15 Test 02/14/25 12:54 02/14/25 12:12 Range/Units C-Reactive Protein High Sensitivity 5.91 H <1.0 mg/dL Urine Color Light-yellow Yellow Urine Clarity Clear Clear Urine pH 6.5 5.0-9.0 Urine Specific [place] 1.013 1.001-1.035 Urine Protein Negative Negative Urine Ketones Negative Negative Urine Blood Negative Negative /uL Urine Nitrite 2+ H Negative Urine Bilirubin Negative Negative Urine Urobilinogen Normal Negative mg/dL Urine Leukocyte Esterase Trace Negative /uL Urine RBC 1 0 - 4 /hpf Urine Microscopic WBC 6 H 0-5 /HPF Urine Squamous Epithelial Cells Few <5 /hpf Urine Bacteria Many H None Seen /hpf Urine Glucose Normal Normal mg/dL Microbiology Date/Time Source Procedure Growth Status 02/15/25 12:05 Vulva Gram Stain - Final Resulted 02/15/25 12:05 Vulva Wound Culture - Preliminary Resulted Assessment Supraventricular tachycardia, now normal sinus rhythm Rule out structural heart disease Left labial abscess Sleep apnea with CPAP use Morbid obesity Plan/Recommendation We will continue with the following plan/recommendations (Dr. Orellana): Case discussed with . We will proceed with obtaining a transthoracic echocardiogram to evaluate cardiac function. We will initiate low-dose beta- argelia for rate control. Consider antiarrhythmic agent such as flecainide with normal ejection fraction. Pending transthoracic echocardiogram. Monitor and replete electrolytes as needed. Thank you for allowing us to care for this patient. Please call with any questions or concerns. Critical care time spent: 44 minutes This medical document was created using an electronic medical record system with voice recognition software and computerized dictation system. Although this document has been carefully reviewed, there might still be some phonetic and typographical errors. Occasional wrong-word or ``sound-alike substitutions may have occurred due to the inherent limitations of voice recognition software. These areas are purely typographical due to imperfections of the software programs and do not reflect any compromise in the patient's medical care. Ple ase read the chart carefully and recognize, using context, where these substitutions have occurred. Plan discussed with: Patient NYHA Physical activity limitations: NA Date of Service: Feb 16, 2025 Billing Provider: DOMINIQUE PRATHER Cardiology Common Codes: [id number] INP/OBS CARE (High) Cardiology Consultation Codes: [id number] CONSULT <45MIN DOMINIQUE PRATHER Feb 16, 2025 15:48
[2025-02-16 15:55] LABS: Magnesium 2.2 mg/dL (1.6-2.6)
[2025-02-16] MEDS: VANCOMYCIN 1.75GM/350ML 350 ML IV SCH (17:59)
[2025-02-16] MEDS: CALCIUM CARB 500 MG CHEW TAB PO PRN (21:18)
[2025-02-16] MEDS: METOPROLOL TARTRATE 25 MG TAB PO SCH (21:20)
[2025-02-17] VITALS (9 sets, daily range): BP systolic 96–108; BP diastolic 39–64; PULSE 67–93; RESP 18–21; TEMP 97.1–98.8; O2SAT 96–99
[2025-02-17 06:09] LABS: Basophils # (auto) 0 10 ^3/uL (0-0.2); Basophils % (auto) 0.5 % (0.0-2.0); Eosinophils # (auto) 0.2 10 ^3/uL (0-0.8); Hematocrit 35.9 % (36.0-46.0); Hemoglobin 12.1 g/dL (12.2-16.2); Lymphocytes # (auto) 1.7 10 ^3/uL (0.4-5.4); Lymphocytes % (auto) 20.4 % (10.0-50.0); Mean Corpuscular Hemoglobin 31.1 pg (28.0-32.0); Mean Corpuscular Hgb Conc. 33.6 g/dL (32.0-36.0); Mean Corpuscular Volume 92.8 fL (80.0-100.0); Monocytes # (auto) 0.7 10 ^3/uL (0-1.3); Monocytes % (auto) 8.9 % (0.0-12.0); Neutrophils # (auto) 5.6 10 ^3/uL (1.6-8.6); Neutrophils % (auto) 67.2 % (37.0-80.0); Platelet Count (auto) 277 10^3/uL (140-450); Red Blood Cells 3.87 10^6/uL (4.0-5.20); White Blood Cell 8.3 10^3/uL (4.4-10.8)
[2025-02-17 06:24] LABS: Alanine Aminotransferase 11 U/L (7-40); Albumin 3.8 g/dL (3.2-4.8); Alkaline Phosphatase 54 U/L (46-116); Anion Gap 7 (5-15); BUN/Creatinine Ratio 9.4 (10.0-20.0); Bilirubin, Total 0.4 mg/dL (0.2-1.0); Calcium 8.9 mg/dL (8.7-10.4); Carbon Dioxide 23 mmol/L (20-31); Glucose 103 mg/dL (74-106); Potassium 3.7 mmol/L (3.5-5.1); Sodium 139 mmol/L (136-145); Total Protein 6.9 g/dL (5.7-8.2)
[2025-02-17 06:28] LABS: Aspartate Aminotransferase < 8 U/L (13-40); Blood Urea Nitrogen 5 mg/dL (9-23); Chloride 109 mmol/L (98-107)
--- NOTE | 2025-02-17 12:04 | DVHPN2 ---
Subjective The patient is seen and examined at bedside. No complaint today. No SVT today. Waiting for echo. Reviewed: Care Plan, H&P, Labs, Medications, Previous Orders, Radiology Changes from previous H/P or p: No Changes Objective Vitals Vital Signs Date Time Temp Pulse Resp B/P (MAP) Pulse Ox O2 Delivery O2 Flow Rate FiO2 02/17/25 09:56 69 104/64 02/17/25 09:00 98.4 20 97 98.4 02/17/25 07:56 Room Air* 0 21 Intake/Output Intake and Output 02/17/25 07:00 Intake Total 4660 ml Balance 4660 ml Intake Oral 2760 ml IV Total 1900 ml # Voids 7 # Bowel Movements 1 General Appearance: Alert, Oriented X3, Cooperative, No acute distress HEENT: Atraumatic, PERRLA, EOMI, Mucous membr. moist/pink Neck: Supple Lungs: Clear to auscultation, Normal air movement Cardiovascular: Regular rate, Normal S1, Normal S2, No murmurs, Gallops, Rubs Abdomen: Normal bowel sounds, Soft, No tenderness Neuro: Cranial nerves 3-12 NL Psych/Mental Status: Mental status NL Medications Current Medications Medications Dose Ordered Sig/Noah Route Start Time Stop Time Status Last Admin Dose Admin Vancomycin HCl 0 ml @ 0 mls/hr UD IV 02/14/25 14:45 Sodium Chloride 10 ml Q8HR IV 02/14/25 22:00 02/17/25 05:11 10 ML Docusate Sodium 100 mg BIDPRN PRN PO 02/14/25 15:30 Acetaminophen 650 mg Q6HP PRN PO 02/14/25 15:30 Acetaminophen/ Hydrocodone Bitart 1 tab Q4HP PRN PO 02/14/25 15:30 02/14/25 19:56 1 TAB Hydromorphone HCl 0.5 mg Q4HP PRN IV 02/14/25 15:30 Ondansetron HCl 4 mg Q4HP PRN IV 02/14/25 15:30 Piperacillin Sod/ Tazobactam Sod 100 ml @ 25 mls/hr Q6H IV 02/14/25 21:00 02/17/25 09:24 25 MLS/HR Nitroglycerin 0.4 mg Q5MINP PRN SL 02/16/25 06:45 Morphine Sulfate 2 mg Q30M PRN IV 02/16/25 06:45 Sodium Chloride 10 ml Q8HR IV 02/16/25 14:00 Vancomycin HCl 350 ml @ 200 mls/hr Q8H IV 02/16/25 17:00 02/17/25 09:00 200 MLS/HR Metoprolol Tartrate 12.5 mg BID PO 02/16/25 22:00 02/17/25 09:56 12.5 MG Calcium Carbonate 500 mg Q4HPRN PRN PO 02/16/25 20:45 02/16/25 21:18 500 MG Laboratory Results Laboratory Tests 02/17/25 05:18 Chemistry Test 02/17/25 05:18 Albumin 3.8 g/dL (3.2-4.8) Calcium Level 8.9 mg/dL (8.7-10.4) Total Protein 6.9 g/dL (5.7-8.2) LFT Test 02/17/25 05:18 Alanine Aminotransferase (ALT) 11 U/L (7-40) Alkaline Phosphatase 54 U/L (46-116) Aspartate Amino Transferase (AST) < 8 U/L (13-40) L Total Bilirubin 0.4 mg/dL (0.2-1.0) Urinalysis Test 02/14/25 12:12 Urine Color Light-yellow (Yellow) Urine Clarity Clear (Clear) Urine pH 6.5 (5.0-9.0) Urine Specific [place] 1.013 (1.001-1.035) Urine Protein Negative (Negative) Urine Ketones Negative (Negative) Urine Blood Negative /uL (Negative) Urine Nitrite 2+ (Negative) H Urine Bilirubin Negative (Negative) Urine Urobilinogen Normal mg/dL (Negative) Urine Leukocyte Esterase Trace /uL (Negative) Urine RBC 1 /hpf (0 - 4) Urine Microscopic WBC 6 /HPF (0-5) H Urine Squamous Epithelial Cells Few /hpf (<5) Urine Bacteria Many /hpf (None Seen) H Urine Glucose Normal mg/dL (Normal) Microbiology Microbiology Date/Time Source Procedure Growth Status 02/16/25 08:47 Blood Blood Culture - Preliminary NO GROWTH AFTER 24 HOURS OF INCUBATION. Resulted 02/15/25 12:05 Vulva Gram Stain - Final Resulted 02/15/25 12:05 Vulva Wound Culture - Preliminary Resulted Labs and/or images reviewed: Labs reviewed by me Assessment/Plan Assessment/Plan Labial abscess Sepsis Tachycardia, SVT this morning Leukocytosis Plan Continuing current management. Continuing IV antibiotic. We will monitor tachycardia. Appreciate OBGYN input regarding to the labia abscess. No I and D per OBGYN , continuing with antibiotic. Continuing with pain medication. Software Developer Consultant's input appreciated We will follow 2D echo result. If EF normal, patient will be start on flecanide per distance education director. Continuing metoprolol Discharge planning when cleared by distance education director This medical document was created using an electronic medical record system with [employer] dictation system. Although this document has been carefully reviewed, there may still be some phonetic and typographical errors. These areas are purely typographical due to imperfections of the software programs, and do not reflect any compromise in the patient's medical care. Plan discussed with: Patient My Orders Orders - SADIE SANTILLAN MD Procedure Category Date Status Time * Cardiology Consult CONS 02/16/25 Transmitted 15:11 Date of Service: February 17, 2025 Billing Provider: SADIE SANTILLAN MD Common Visit Codes: [id number] INP/OBS CARE(HIGH) SADIE SANTILLAN MD February 17, 2025 12:04
--- NOTE | 2025-02-17 13:21 | DVHSR ---
APPROVED REPORT EXAM: Two-dimensional and M-mode echocardiogram with Doppler and color Doppler. Blood Pressure: 103/67 mmHg INDICATION SVT RISK FACTORS Obesity: Height: 5'6", Weight: 319 DIMENSIONS LVDd4.7 (3.8-5.7cm)LA (2D)3.4 (1.9-4.0cm)Aortic Root3.2 (2.0-3.7cm) LVDs3.1 (2.5-4.0cm)LA (MM) (1.9-4.0cm)Aortic Cusp Exc2.1 (1.5-2.0cm) EF (%) 64.0 (55-70%)Rt. Atrium3.8 (1.9-4.0cm)Asc. Aorta cm IVSd0.9 (0.7-1.1cm)RV (D) (1.8-2.4cm) PWd1.0 (0.7-1.1cm) Mitral Valve MitralMitral Stenosis E wave1.01m/sMV Mean GR.mmHg A wave0.63m/sMV Peak GR.mmHg E/A ratio1.62D MVAcm2 DECEL [id number] 1/2 Timems Aortic Valve Aortic ValveAortic Stenosis V11.39m/Verónica Mean GR.4mmHg V21.32m/Verónica Peak GR.7mmHg LVOT Diameter2.3 (1.8-2.4cm)Doppler AVA4.37cm2 Pulmonic Valve V20.94m/s Other Information Quality : Technically LimitedRhythm : Technically limited study due to body habitus. Conclusion Technically good study. Sinus rhythm. Normal chamber sizes. Valves are normal. Mild aortic sclerosis. No stenosis. Tricuspid and pulmonic or structurally norm al. Left ventricular systolic performance is preserved at 60% with normal RV function. Doppler reveals no significant regurgitant jets. No pericardial effusion masses or vegetations.
--- NOTE | 2025-02-17 15:41 | DVHPN2 ---
Consult Progress Note Subjective Other Systems: Patient in normal sinus rhythm on classroom monitor. No other episodes of tachycardia seen on classroom monitor. Objective vital signs Vital Sign Date Time Temp Pulse Resp B/P (MAP) Pulse Ox O2 Delivery O2 Flow Rate FiO2 02/17/25 13:00 98.8 70 21 102/55 (71) 96 98.8 02/17/25 07:56 Room Air* 0 21 Total Intake and Output 02/16/25 02/16/25 02/17/25 15:00 23:00 07:00 Intake Total 1350 ml 2060 ml 1250 ml Balance 1350 ml 2060 ml 1250 ml medications Current Medications Medications Dose Ordered Sig/Noah Route Start Time Stop Time Status Last Admin Dose Admin Vancomycin HCl 0 ml @ 0 mls/hr UD IV 02/14/25 14:45 Docusate Sodium 100 mg BIDPRN PRN PO 02/14/25 15:30 Acetaminophen 650 mg Q6HP PRN PO 02/14/25 15:30 Acetaminophen/ Hydrocodone Bitart 1 tab Q4HP PRN PO 02/14/25 15:30 02/14/25 19:56 1 TAB Hydromorphone HCl 0.5 mg Q4HP PRN IV 02/14/25 15:30 Ondansetron HCl 4 mg Q4HP PRN IV 02/14/25 15:30 Piperacillin Sod/ Tazobactam Sod 100 ml @ 25 mls/hr Q6H IV 02/14/25 21:00 02/17/25 09:24 25 MLS/HR Nitroglycerin 0.4 mg Q5MINP PRN SL 02/16/25 06:45 Morphine Sulfate 2 mg Q30M PRN IV 02/16/25 06:45 Sodium Chloride 10 ml Q8HR IV 02/16/25 14:00 02/17/25 14:11 10 ML Vancomycin HCl 350 ml @ 200 mls/hr Q8H IV 02/16/25 17:00 02/17/25 09:00 200 MLS/HR Metoprolol Tartrate 12.5 mg BID PO 02/16/25 22:00 02/17/25 09:56 12.5 MG Calcium Carbonate 500 mg Q4HPRN PRN PO 02/16/25 20:45 02/16/25 21:18 500 MG Flecainide Acetate 50 mg Q12HR PO 02/17/25 22:00 Examination: GENERAL:Normal, LUNGS:Normal, CVS:Normal, NEURO:Normal laboratory and microbiology Laboratory Tests 02/17/25 05:18 Test 02/17/25 05:18 Range/Units Serum Glucose 103 74-106 mg/dL Problem List/Assessment/Plan Problem List/Assessment/Plan Supraventricular tachycardia, now normal sinus rhythm Left labial abscess Sleep apnea with CPAP use Morbid obesity Plan/Recommendation (Dr. Orellana): Case discussed with . Transthoracic echocardiogram reveals EF 60% with normal RV function. Continue with low-dose beta-argelia for rate control. Initiate antiarrhythmic agent, flecainide. Monitor and replete electrolytes as needed. There is no further inpatient cardiac workup indicated at this time. The patient was educated that she will need to follow up with a psychological assistant in the outpatient setting within 1-2 weeks post discharge. The patient and her mother at bedside verbalized understanding. Thank you for allowing us to care for this patient. Please call with any questions or concerns. This medical document was created using an electronic medical record system with voice recognition software and computerized dictation system. Although this document has been carefully reviewed, there might still be some phonetic and typographical errors. Occasional wrong-word or ``sound-alike substitutions may have occurred due to the inherent limitations of voice recognition software. These areas are purely typographical due to imperfections of the software programs and do not reflect any compromise in the patient's medical care. Please read the chart carefully and recognize, using context, where these substitutions have occurred. Plan discussed with: Patient Dietary Evaluation Review Comments: regular diet, no further recommendations for her labial abscess. Expected Outcomes/Goals: gradually healed wounds, gradual wt loss. Date of Service: February 17, 2025 Billing Provider: DOMINIQUE PRATHER Common Visit Codes: [id number] INP/OBS CARE(HIGH) DOMINIQUE PRATHER February 17, 2025 15:41
[2025-02-17] MEDS: FLECAINIDE ACETATE 50 MG TAB PO SCH (21:16)
[2025-02-18 01:00] VITALS: BP 103/58; PULSE 68; RESP 17; TEMP 97.9; O2SAT 97
[2025-02-18 06:47] LABS: Basophils # (auto) 0 10 ^3/uL (0-0.2); Basophils % (auto) 0.4 % (0.0-2.0); Eosinophils # (auto) 0.3 10 ^3/uL (0-0.8); Eosinophils % (auto) 3.5 % (0.0-7.0); Hematocrit 37.1 % (36.0-46.0); Hemoglobin 12.6 g/dL (12.2-16.2); Lymphocytes % (auto) 25.1 % (10.0-50.0); Mean Corpuscular Hemoglobin 31.8 pg (28.0-32.0); Mean Corpuscular Volume 93.5 fL (80.0-100.0); Monocytes # (auto) 0.7 10 ^3/uL (0-1.3); Monocytes % (auto) 8.7 % (0.0-12.0); Neutrophils % (auto) 62.3 % (37.0-80.0); Nucleated Red Blood Cells % 0.1 %; Platelet Count (auto) 287 10^3/uL (140-450); Red Blood Cells 3.97 10^6/uL (4.0-5.20); Red Cell Distribution Width 13.9 % (11.8-14.3)
[2025-02-18 07:07] LABS: Albumin 3.9 g/dL (3.2-4.8); Alkaline Phosphatase 52 U/L (46-116); Anion Gap 7 (5-15); Aspartate Aminotransferase 9 U/L (13-40); Bilirubin, Total 0.3 mg/dL (0.2-1.0); Blood Urea Nitrogen < 5 mg/dL (9-23); Calcium 9.1 mg/dL (8.7-10.4); Carbon Dioxide 23 mmol/L (20-31); Chloride 109 mmol/L (98-107); Glucose 100 mg/dL (74-106); Potassium 3.7 mmol/L (3.5-5.1); Sodium 139 mmol/L (136-145)
[2025-02-18 07:31] LABS: Alanine Aminotransferase 10 U/L (7-40)
[2025-02-18 08:00] VITALS: PULSE 70; PULSE 93; RESP 18; O2SAT 98
[2025-02-18 09:00] VITALS: BP 106/63; PULSE 72; RESP 18; TEMP 97.9; O2SAT 96
[2025-02-18] MEDS ORDERED: HYDR-4902 PO (11:51)
[2025-02-18] MEDS ORDERED: CLIN1CAP70 PO (11:51)
[2025-02-18] MEDS ORDERED: MET25T PO (11:51)
[2025-02-18] MEDS ORDERED: FLE50T PO (11:51)
--- NOTE | 2025-02-18 11:56 | DVHDS2 ---
Discharge Summary Date of Admission Feb 14, 2025 at 15:21 Date of Discharge: February 18, 2025 Admitting Diagnosis Labial abscess Sepsis Tachycardia, SVT this morning Leukocytosis Labs/Diagnostic Data: Laboratory Results Test 02/18/25 09:23 02/18/25 05:46 02/16/25 05:12 02/14/25 17:10 Vancomycin Level Trough 37.8 ug/mL (5-10) White Blood Count 8.0 10^3/uL (4.4-10.8) Red Blood Count 3.97 10^6/uL (4.0-5.20) Hemoglobin 12.6 g/dL (12.2-16.2) Hematocrit 37.1 % (36.0-46.0) Mean Corpuscular Volume 93.5 fL (80.0-100.0) Mean Corpuscular Hemoglobin 31.8 pg (28.0-32.0) Mean Corpuscular Hemoglobin Concent 34.0 g/dL (32.0-36.0) Red Cell Distribution Width 13.9 % (11.8-14.3) Platelet Count 287 10^3/uL (140-450) Mean Platelet Volume 8.8 fL (6.9-10.8) Neutrophils (%) (Auto) 62.3 % (37.0-80.0) Lymphocytes (%) (Auto) 25.1 % (10.0-50.0) Monocytes (%) (Auto) 8.7 % (0.0-12.0) Eosinophils (%) (Auto) 3.5 % (0.0-7.0) Basophils (%) (Auto) 0.4 % (0.0-2.0) Neutrophils # (Auto) 5.0 10 ^3/uL (1.6-8.6) Lymphocytes # (Auto) 2.0 10 ^3/uL (0.4-5.4) Monocytes # (Auto) 0.7 10 ^3/uL (0-1.3) Eosinophils # (Auto) 0.3 10 ^3/uL (0-0.8) Basophils # (Auto) 0 10 ^3/uL (0-0.2) Nucleated Red Blood Cells 0.1 % Sodium Level 139 mmol/L (136-145) Potassium Level 3.7 mmol/L (3.5-5.1) Chloride Level 109 mmol/L (98-107) Carbon Dioxide Level 23 mmol/L (20-31) Anion Gap 7 (5-15) Blood Urea Nitrogen < 5 mg/dL (9-23) Creatinine 0.50 mg/dL (0.550-1.02) Glomerular Filtration Rate Calc 128 mL/min (>90) BUN/Creatinine Ratio 10.0 (10.0-20.0) Serum Glucose 100 mg/dL (74-106) Calcium Level 9.1 mg/dL (8.7-10.4) Total Bilirubin 0.3 mg/dL (0.2-1.0) Aspartate Amino Transferase (AST) 9 U/L (13-40) Alanine Aminotransferase (ALT) 10 U/L (7-40) Alkaline Phosphatase 52 U/L (46-116) Total Protein 7.0 g/dL (5.7-8.2) Albumin 3.9 g/dL (3.2-4.8) Hemoglobin A1c 5.1 % A1C (<5.7) Magnesium Level 2.2 mg/dL (1.6-2.6) Triglycerides Level 85 mg/dL (< 150) Cholesterol Level 138 mg/dL (< 200) LDL Cholesterol 78 mg/dL (< 100) HDL Cholesterol 47 mg/dL (40-59) Thyroid Stimulating Hormone (TSH) 1.81 uIU/mL (0.55-4.78) Lactic Acid Level 0.8 mmol/L (0.4-2.0) Test 02/14/25 16:34 02/14/25 12:54 02/14/25 12:12 Prothrombin Time 11.0 sec (9.3-11.8) Prothrombin Time INR 1.04 (0.9-1.15) C-Reactive Protein High Sensitivity 5.91 mg/dL (<1.0) Urine Color Light-yellow (Yellow) Urine Clarity Clear (Clear) Urine pH 6.5 (5.0-9.0) Urine Specific [place] 1.013 (1.001-1.035) Urine Protein Negative (Negative) Urine Ketones Negative (Negative) Urine Blood Negative /uL (Negative) Urine Nitrite 2+ (Negative) Urine Bilirubin Negative (Negative) Urine Urobilinogen Normal mg/dL (Negative) Urine Leukocyte Esterase Trace /uL (Negative) Urine RBC 1 /hpf (0 - 4) Urine Microscopic WBC 6 /HPF (0-5) Urine Squamous Epithelial Cells Few /hpf (<5) Urine Bacteria Many /hpf (None Seen) Urine Glucose Normal mg/dL (Normal) Other Laboratory Tests 02/18/25 05:46 Brief Hx & Hospital Course: This is 30 year-old female with no known past medical history come into emergency department because of pain in her left labia. She apparently accumulation an abscess two days prior to come into the hospital. She had constant pain and throbbing and very hot around the labia area. She never had this before. She denied any STD disease. She denied any herpes simplex, no history of HIV. The patient was admitted. The patient was put on IV antibiotic with vancomycin and Zosyn. For two days her abscess was bust. Suction Drum Drier Operator was consulted however stated that no need to do any further intervention. Recommend IV antibiotic and wound care only. The patient was about to discharge home but she went into SVT. The patient was given adenosine IV push and she converted to normal sinus rhythm. So her discharge was held. Cardiology was consulted. Echo showed :Sinus rhythm. Normal chamber sizes. Valves are normal. Mild aortic sclerosis. No stenosis. Tricuspid and pulmonic or structurally normal. Left ventricular systolic performance is preserved at 60% with normal RV function. Doppler reveals no significant regurgitant jets. No pericardial effusion masses or vegetations. The patient was started on metoprolol and flecainide. The patient tolerated medication. Today the patient will be discharged home. The patient will have oral antibiotic clindamycin for 10 more days. Follow up with primary care physician 1-2 weeks. Follow up with mobile application development lead per schedule. Activity as tolerated. Diet per home diet. Advised the patient to keep the labia area dry wash with soap and warm water. Physical exam: HEENT: Normocephalic atraumatic pupils equal react to light and accommodation. Extraocular muscles intact, conjunctiva pink, oropharynx moist, no thrush, no exudate. Lymphatic: No lymphadenopathy Cardiovascular exam: S1, S2 was heard. No murmurs, rubs, gallops Lung: Clear on auscultation bilaterally, no wheeze, rale, rhonchi. GI: Abdominal soft, nondistended, nontenderness, positive bowel sounds. Extremity: No crepitus, cyanosis, edema. Pedal pulses present bilateral. Full range of motion. Skin: Normal turgor, no rash. Psych: Alert, oriented x3. Neurology: No focal deficits, cranial nerve II to XII grossly intact. This medical document was created using an electronic medical record system with M[employer] fludoou[employer] direct computerized dictation system. Although this document has been carefully reviewed, there may still be some phonetic and typographical errors. These areas are purely typographical due to imperfections of the software programs, and do not reflect any compromise in the patient's medical care. Condition at Discharge: Stable Final Diagnosis/Problems List Labial abscess Sepsis Tachycardia, SVT this morning Leukocytosis Discharge Disposition: Home Discharge Instruct/Medications Diet: Cardiac 2g Na,low cholest Activity: No Restrictions, As Tolerated Follow Up/Referral: pcp 1-2 weeks Medications: See med list Flecanide 50mg bid clindamycin 300mg tid metoprolol 12.5mg bid Discharge Statement: "Patient was advised to return to the ER or call 911 if any headaches, dizziness, shortness of breath, chest pain, abdominal pain, bleeding, fevers, or worsening of medical condition. Patient was counseled about treatment plan, medications, possible side effects, patientverbalized understanding. All questions were answered to the best of my ability. This discharge took greater then 30 minutes in planning, reviewing documentation, counseling the patient, and discussing with other team members." ASSESSMENT ASSESSMENT Assessment Labia abckate SVT Date of Service: February 18, 2025 Billing Provider: SADIE SANTILLAN MD Common Visit Codes: 83038-KFI/OBS DISCH DAY >30min SADIE SANTILLAN MD February 18, 2025 11:56
[2025-02-18 12:48] VITALS: BP 111/68; PULSE 72; RESP 16; TEMP 98; O2SAT 94
--- NOTE | 2025-02-19 12:11 | ECG ---
[facility] Test Date: 2025-02-19 Test Time: 09:58:17 Pat Name: PAVAN ALEGRIA Department: Room: [address] [place] [address] 1 Gender: F Verification Clerk: : 1995 Requested By: MARITO ANTHONY Order Number: [id number] Reading MD: Measurements Intervals Pearson Rate: 86 P: 57 WY: 143 QRS: 18 QRSD: 88 T: 38 QT: 397 QTc: 475 Interpretive Statements Sinus rhythm Probable left atrial enlargement Minimal ST elevation, anterior leads Please click the below link to view image of tracing.
== END 2025-02-18 13:13 | disposition home or self-care (01) | DRG 720 ==
LOC: ER 11:20 → OVERFLOW 15:21 → EAST 21:40 → TELE-EAST 02-16 06:22
PROVIDERS: ADMIT Internal Medicine; ATTEND Internal Medicine
DX: A41.9 Sepsis, unspecified organism (principal); I47.10 Supraventricular tachycardia, unspecified; E66.01 Morbid (severe) obesity due to excess calories; N76.4 Abscess of vulva; G47.30 Sleep apnea, unspecified; Z68.1 Body mass index [BMI] 19.9 or less, adult
CPT/HCPCS: 36415; 74177; 80048; 80053; 80061; 80202; 81001; 83036; 83605; 83735; 84443; 85025; 85610; 86141; 87040; 87205; 93005; 93306; 96365; 96367; G0378; J0153; J2543